=== PATIENT | female | born 1935 | race Caucasian/White ===

== ENCOUNTER → 2018-06-10 | Outpatient (CLI) | payer MEDICARE, BC, OTHER ==
[~2018-06-10] MED LIST: ANASPAZ0.125 MG SL; BACTRIM DS TAB1 EACH PO; CALCIUM 600 +1 EA11 PO; CELEXA 20 MG TA20 M1 PO; CELEXA20 MG PO; COUMADIN 2.5MG2.5 M1 PO; COUMADIN 4 MG TA4 M1 PO; COUMADIN 5 MG TA5 M1 PO; Calcium PO; ENOXAPARIN30 MG/0.3 SQ; ENOXAPARIN60 MG/0.1 SUBQ; FISH OIL 1,001000 MG PO; HAIR, SKIN & N1 EAC1 PO; LEVOTHROID88 MCG PO; LIPITOR 10 MG10 M1 PO; MYRBETRIQ25 MG PO; NEXIUM 40 MG CA40 M1 PO; NORCO 5-325 TA1 EACH PO; VITAMIN B-12500 MCG PO; VITAMIN D31000 UNI2 PO; VITAMINC500 PO; XANAX 0.25 MG0.25 MG PO; ZPAK PO
== END ==
LOC: M.RAD 15:50
DX: S92.341A Displaced fracture of fourth metatarsal bone, right foot, initial encounter for closed fracture (principal); M19.071 Primary osteoarthritis, right ankle and foot; X58.XXXA Exposure to other specified factors, initial encounter; Y93.89 Activity, other specified; Y92.89 Other specified places as the place of occurrence of the external cause; Y99.8 Other external cause status

== ENCOUNTER 2018-09-24 17:55 | Emergency (ER) | payer MEDICARE, BC, OTHER ==
[~2018-09-24] VITALS: Ht 162.6 cm; Wt 68.0 kg
[~2018-09-24 17:55] MED LIST changes: -LEVOTHROID88 MCG PO; +LEVOXYL75 MCG PO
[2018-09-24] MEDS ORDERED: COUMADIN 5 MG TA5 M1 PO (18:10)
[2018-09-24] MEDS ORDERED: COUMADIN 2.5MG2.5 M1 PO (18:10)
[2018-09-24 18:37] LABS: PROTIME 20.2 Seconds (9.20-11.50)
[2018-09-24 19:20] VITALS: BP 141/65
== END 2018-09-24 19:20 | disposition home or self-care (01) ==
LOC: M.ERS 17:55
PROVIDERS: Emergency Medicine Emergency Medical Services
DX: S63.591A Other specified sprain of right wrist, initial encounter (principal); S09.8XXA Other specified injuries of head, initial encounter; N30.10 Interstitial cystitis (chronic) without hematuria; E78.00 Pure hypercholesterolemia, unspecified; Z88.5 Allergy status to narcotic agent; Z91.041 Radiographic dye allergy status; Z88.8 Allergy status to other drugs, medicaments and biological substances; Z90.11 Acquired absence of right breast and nipple; Z90.13 Acquired absence of bilateral breasts and nipples; W01.0XXA Fall on same level from slipping, tripping and stumbling without subsequent striking against object, initial encounter; Y93.89 Activity, other specified; Y92.89 Other specified places as the place of occurrence of the external cause; Y99.8 Other external cause status

== ENCOUNTER 2020-08-12 11:53 | Emergency (ER) | payer MEDICARE, BC ==
[~2020-08-12] VITALS: Ht 157.5 cm; Wt 70.3 kg
[2020-08-12 12:30] LABS: ABSOLUTE EOSINOPHILS 0.1 thou/uL (0.0-0.7); ABSOLUTE LYMPHOCYTES 1.2 thou/uL (0.8-5.3); ABSOLUTE MONOCYTES 0.4 thou/uL (0.0-1.2); ABSOLUTE NEUTROPHILS 4.3 thou/uL (1.6-8.1); BASOPHILS 0.8 %; EOSINOPHILS 2.3 %; HEMOGLOBIN 13.4 gm/dL (12.0-15.0); LYMPHOCYTES 19.6 %; MCH 29.5 pg (26.0-34.0); MCHC 33.4 g/dL (28.0-37.0); MCV 88.3 fL (80.0-100.0); MONOCYTES 5.9 %; MPV 7.8 fl. (7.2-11.1); NUCLEATED RBCS 0 /100WBC; PLATELET COUNT* 198 thou/uL (150-400); POLYS 71.4 %; RBC 4.53 mil/uL (4.20-5.00); RDW-CV 14.1 % (10.5-14.5)
[2020-08-12 12:38] LABS: CALCIUM 9.3 mg/dL (8.5-10.1); CREATININE 0.9 mg/dL (0.6-1.3)
[2020-08-12 12:41] LABS: APTT 35.1 Seconds (25.0-31.3); INR 2.5; PROTIME 25.2 Seconds (9.20-11.50)
[2020-08-12 12:42] LABS: ALBUMIN 3.5 g/dL (3.4-5.0); TOTAL BILIRUBIN 0.7 mg/dL (<0.1-1.0); TOTAL PROTEIN 6.4 g/dL (6.4-8.2)
[2020-08-12 13:45] VITALS: BP 115/65
== END 2020-08-12 13:46 | disposition home or self-care (01) ==
LOC: M.ERS 11:53
PROVIDERS: Family Medicine
DX: S22.080A Wedge compression fracture of T11-T12 vertebra, initial encounter for closed fracture (principal); Z98.51 Tubal ligation status; Z90.11 Acquired absence of right breast and nipple; Z88.5 Allergy status to narcotic agent; Z91.041 Radiographic dye allergy status; Z88.8 Allergy status to other drugs, medicaments and biological substances; W18.39XA Other fall on same level, initial encounter; Y93.89 Activity, other specified; Y92.89 Other specified places as the place of occurrence of the external cause; Y99.8 Other external cause status

== ENCOUNTER 2020-12-07 16:09 | Emergency (ER) | payer MEDICARE, BC ==
[~2020-12-07] VITALS: Ht 160 cm; Wt 72.6 kg
[2020-12-07 16:47] LABS: ABSOLUTE EOSINOPHILS 0.1 thou/uL (0.0-0.7); ABSOLUTE LYMPHOCYTES 1.3 thou/uL (0.8-5.3); ABSOLUTE MONOCYTES 0.4 thou/uL (0.0-1.2); ABSOLUTE NEUTROPHILS 3.2 thou/uL (1.6-8.1); BASOPHILS 0.9 %; EOSINOPHILS 2.9 %; HEMATOCRIT 39.2 % (37.0-47.0); HEMOGLOBIN 13.4 gm/dL (12.0-15.0); MCH 30.6 pg (26.0-34.0); MCHC 34.1 g/dL (28.0-37.0); MCV 89.8 fL (80.0-100.0); MONOCYTES 8.6 %; MPV 8.5 fl. (7.2-11.1); NUCLEATED RBCS 0 /100WBC; PLATELET COUNT* 182 thou/uL (150-400); POLYS 61.6 %; RBC 4.37 mil/uL (4.20-5.00); RDW-CV 14.2 % (10.5-14.5); WBC 5.2 thou/uL (4.0-11.0)
[2020-12-07 16:59] LABS: APTT 39.9 Seconds (25.0-31.3); INR 3.4; PROTIME 33.3 Seconds (9.20-11.50)
[2020-12-07 17:15] LABS: CALCIUM 8.3 mg/dL (8.5-10.1); CREATININE 0.9 mg/dL (0.6-1.3); POTASSIUM 3.7 mmol/L (3.5-5.1)
[2020-12-07 17:19] LABS: ALBUMIN 3.3 g/dL (3.4-5.0); TOTAL PROTEIN 6.4 g/dL (6.4-8.2)
[2020-12-07 18:00] VITALS: BP 116/42
--- NOTE | 2020-12-08 11:47 | EKG ---
[place] [address] ELECTROCARDIOGRAM REPORT Name: JOAQUIN GALDAMEZ Room: [facility]#: [id number] Admission: 12/07/20 Attend Phys: Discharge: 12/07/20 Date of : 39 Date of Service: 12/07/20 [facility] Report #: [id number] THIS REPORT FOR: //name// [facility] ED Test Date: 2020-12-07 Test Time: 16:40:36 Pat Name: JOAQUINPOLI GALDAMEZ Department: Room: Gender: F Veterinary Assistant: : [id number] Requested By: Dorothy Plasencia Order Number: [id number] MD: Ravindra Lowry Measurements Intervals [place] Rate: 65 P: 50 OR: 151 QRS: -4 QRSD: 82 T: 27 QT: 420 QTc: 437 Interpretive Statements Sinus rhythm Inferior infarct, old, possible Low voltage, extremity and precordial leads Abnormal R-wave progression, early transition Compared to ECG 02/24/2015 14:52:06 Low QRS voltage now present Electronically Signed On 12-08-2020 11:47:25 CDT by Ravindra Lowry [email or web address] <ELECTRONICALLY SIGNED> By: Ravindra Lowry MD, FACC 12/08/20 1147 1640 1640 Ravindra Lowry MD, FAC /EPI
== END 2020-12-07 18:00 | disposition home or self-care (01) ==
LOC: M.ERS 16:09
PROVIDERS: Nurse Practitioner Family
DX: S20.211A Contusion of right front wall of thorax, initial encounter (principal); S09.90XA Unspecified injury of head, initial encounter; M54.6 Pain in thoracic spine; R79.1 Abnormal coagulation profile; I48.91 Unspecified atrial fibrillation; Z88.5 Allergy status to narcotic agent; Z79.899 Other long term (current) drug therapy; Z79.01 Long term (current) use of anticoagulants; Z86.711 Personal history of pulmonary embolism; Z90.89 Acquired absence of other organs; W01.198A Fall on same level from slipping, tripping and stumbling with subsequent striking against other object, initial encounter; Y93.89 Activity, other specified; Y92.89 Other specified places as the place of occurrence of the external cause; Y99.9 Unspecified external cause status